=== PATIENT | female | born 1960 | race Caucasian/White ===

== ENCOUNTER 2016-05-01 12:07 | Outpatient (CLI) | payer OTHER ==
[2016-05-01 14:22] LABS: #Eosinphils 0.1 thou/uL (0.0-0.7); #Lymphocytes 1.4 thou/uL (1.20-3.40); #Monocytes 0.3 thou/uL (0.11-0.59); #Neutrophils 4.1 thou/uL (1.40-6.50); %Basophils 0.7 % (0.0-1.0); %Eosinophils 1.7 % (0.0-10.0); %Lymphocytes 24.4 % (21.0-51.0); %Monocytes 4.6 % (0.0-10.0); Hematocrit 41.5 % (36.0-47.0); Mean Platelet Volume 9.8 fL (7.4-10.4); Red Blood Cell (RBC) Count 4.45 mill/uL (4.20-5.40); White Blood Cell (WBC) Count 5.9 thou/uL (4.8-10.8)
[2016-05-01 14:26] LABS: Bilirubin Negative (Negative); Blood, Urine Negative (Negative); Glucose, Urine (Dipstick) Negative (Negative); Ketone, Urine Negative (Negative); Nitrite Negative (Negative); Protein, Urine (Dipstick) Negative (Neg-Trace); Urobilinogen 0.2 mg/dL (0.2-1.0)
[2016-05-01 14:50] LABS: ALT (SGPT) 35 U/L (0-55); AST (SGOT) 31 U/L (5-34); Alkaline Phosphatase 152 U/L (40-150); Anion Gap 14 mmol/L (10-20); BUN (Urea Nitrogen) 21 mg/dL (9.8-20.1); Bilirubin, Total 0.6 mg/dL (0.2-1.2); Calc. Creatinine Clearance 0 mL/min (70-130); Calcium 9.6 mg/dL (7.8-10.44); Carbon Dioxide 26 mmol/L (22-29); Chloride 105 mmol/L (98-107); Estimated GFR-MDRD 65; LDL Cholesterol, Calculated 94 mg/dL; Protein, Total 6.6 g/dL (6.0-8.3)
== END 2016-05-01 12:08 ==
LOC: NAVSJIPCSP 12:07
PROVIDERS: ATTEND Internal Medicine
DX: I10 Essential (primary) hypertension (principal)
CPT/HCPCS: 36415; 80053; 80061; 81003; 84443; 85025

== ENCOUNTER 2024-02-08 15:05 | Emergency (ER) | payer BC ==
[~2024-02-08 15:05] MED LIST: Iopamidol 370 76% 100 ML VIAL ONE
[2024-02-08] MEDS ORDERED: fentaNYL 50 mcg/mL 1 mL Vial ONE ×2 (16:17→19:32)
[2024-02-08] MEDS ORDERED: Promethazine HCl 25 MG/ML VIAL ONE ×2 (16:18→18:11)
[2024-02-08] MEDS ORDERED: Sodium Chloride 0.9% 1,000 ML ONE (16:18)
[2024-02-08 16:19] LABS: #Lymphocytes 0.8 thou/uL (1.20-3.40); #Monocytes 0.3 thou/uL (0.11-0.59); #Neutrophils 7.6 thou/uL (1.40-6.50); %Basophils 0.5 % (0.0-1.0); %Eosinophils 0.3 % (0.0-10.0); %Lymphocytes 9.3 % (21.0-51.0); %Monocytes 3.5 % (0.0-10.0); %Neutrophils 86.5 % (42.0-75.0); Hematocrit 41.8 % (36.0-47.0); Hemoglobin 14.5 g/dL (12.0-16.0); Mean Corpuscular HGB CONC 34.7 g/dL (32.0-36.0); Mean Corpuscular Hemoglobin 31.5 pg (27.0-31.0); Mean Corpuscular Volume 90.6 fl (78.0-98.0); Mean Platelet Volume 11.2 fL (7.4-10.4); Platelet Count 227 10x3/uL (130-400); RBC Distribution Width 10.5 % (11.5-14.5); Red Blood Cell (RBC) Count 4.61 mill/uL (4.20-5.40); White Blood Cell (WBC) Count 8.8 10x3/uL (4.8-10.8)
[2024-02-08 16:36] LABS: Troponin I Less than 0.010 ng/mL (< 0.028)
[2024-02-08 16:37] LABS: ALT (SGPT) 66 U/L (8-55); AST (SGOT) 41 U/L (5-34); Albumin 3.9 g/dL (3.4-4.8); Alkaline Phosphatase 232 U/L (40-110); Anion Gap 17 mmol/L (10-20); BUN (Urea Nitrogen) 14 mg/dL (9.8-20.1); Bilirubin, Total 0.8 mg/dL (0.2-1.2); Calc. Creatinine Clearance 0 mL/min (70-130); Calcium 10.1 mg/dL (7.8-10.44); Carbon Dioxide 26 mmol/L (23-31); Chloride 100 mmol/L (98-107); Estimated GFR 85; Globulin 2.4 g/dL (2.4-3.5); Glucose 113 mg/dL (80-115); Lipase 11 U/L (8-78); Potassium 4.1 mmol/L (3.5-5.1); Protein, Total 6.3 g/dL (5.8-8.1); Sodium 139 mmol/L (136-145)
[2024-02-08] MEDS ORDERED: Ketorolac Tromethamine 30 MG (1 mL) VIAL ONE (18:08)
[2024-02-08] MEDS ORDERED: metroNIDAZOLE 500 MG (100 mL) BAG ONE (18:08)
[2024-02-08 19:06] LABS: Bilirubin Negative (Negative); Blood, Urine Negative (Negative); Clarity Clear (Clear); Glucose, Urine (Dipstick) Negative (Negative); Ketone, Urine Trace mg/dL (Negative); Leukocyte Negative (Negative); Nitrite Negative (Negative); Protein, Urine (Dipstick) Negative (Neg-Trace); Specific Gravity, Urine 1.015 (1.005-1.030); Urobilinogen 0.2 mg/dL (Less than 2)
[2024-02-08 19:14] LABS: Bacteria/HPF 1+ HPF (None Seen); CAUTI Indications for Culture Pelvic or flank pain; RBC/HPF 0-3 HPF (0-3); Squamous Epithelial 0-3 HPF (0-3); WBC/HPF 0-3 HPF (0-3)
[2024-02-08 19:15] LABS: Urine Culture Reflex No No
[2024-02-08] MEDS ORDERED: Morphine 2 MG/ML VIAL ONE (20:38)
== END 2024-02-08 20:55 | disposition short-term general hospital (02) ==
LOC: NAV ERS 15:05
DX: A09 Infectious gastroenteritis and colitis, unspecified (principal); I10 Essential (primary) hypertension
CPT/HCPCS: 74177; 80053; 81001; 83605; 83690; 84484; 85025; 93005; 96365; 96366; 96368; 96375; 96376; J1885; J2272; J2550; J3010; J7030; Q9967